=== PATIENT | male | born 1970 | race Caucasian/White ===

== ENCOUNTER → 2020-07-28 | Outpatient (CLI) | payer OTHER | LOC: SJCVCIMAG 07:46 | PROVIDERS: ATTEND Internal Medicine | DX: R94.31 Abnormal electrocardiogram [ECG] [EKG] (principal); I07.1 Rheumatic tricuspid insufficiency; R06.00 Dyspnea, unspecified; I11.9 Hypertensive heart disease without heart failure; R53.83 Other fatigue; Z87.891 Personal history of nicotine dependence; Z79.899 Other long term (current) drug therapy ==